=== PATIENT | female | born 1990 | race American Indian/Alaskan Native ===

== ENCOUNTER 2018-12-23 20:36 | Emergency (ER) | payer SELFPAY ==
[2018-12-23 23:19] VITALS: BP 137/89
== END 2018-12-23 23:11 | disposition left against medical advice (07) ==
LOC: ED 20:36
DX: R11.2 Nausea with vomiting, unspecified (principal); Z53.21 Procedure and treatment not carried out due to patient leaving prior to being seen by health care provider